=== PATIENT | female | born 1970 | race Caucasian/White ===

== ENCOUNTER 2021-10-02 17:54 | Emergency (ER) | payer OTHER, SELFPAY ==
--- NOTE | 2021-10-02 18:19 | WPDEDEXPGENP ---
HPI - General Ped General Chief complaint: Urogenital-Female Stated complaint: uti complaing History of Present Illness HPI narrative: Within the patient is a 59-year-old female who presents to the express care via POV for evaluation of urinary symptoms that have been present for 2 days. Additionally, she reports dysuria and a strong urine odor. Denies taking meds for symptoms. History of UTIs. Last UTI was 3 weeks ago. Patient states she completed the course of antibiotic treatment although is unable to recall the name and dosing of the antibiotic. Related Data Allergies Allergy/AdvReac Type Severity Reaction Status Date / Time No Known Allergies Allergy Verified 10/02/21 18:32 Pediatric Review of Systems Review of Systems: Denies history of pyelonephritis and renal calculi. Pertinent negatives: fever, chills, sweats, change in appetite, poor p.o. intake, malaise, recent weight loss, myalgias, lymphadenopathy, headache, dizziness, STD exposure, painful intercourse, abdominal pain, constipation, nausea, vomiting, diarrhea, abdominal cramping, hematuria, urinary frequency/urgency, back pain, urinary incontinence, vaginal bleeding/discharge, shortness of breath, chest pain, and heart palpitations/murmurs. Pediatric Exam Narrative: Physical exam: GENERAL: Well-appearing, well-nourished, and in no acute distress. HEAD: Normocephalic, atraumatic. NECK: Supple. No lymphadenopathy or nuchal rigidity. CHEST: Lung sounds are clear to auscultation in bilateral lung mach[place]. No respiratory distress. HEART: Regular rate and rhythm. No murmur, gallop, or rub heard. ABDOMEN: Soft, non-tender, non-distended, normal active bowel sounds in all quadrants. No guarding. No rebound tenderness. No pulsatile or palpable abdominal mass(es). No CVATGU: Bladder non-distended, non-tender EXTREMITIES: Normal range of motion. No edema. SKIN: Warm, dry, no rash. No skin color changes. Excellent turgor. NEURO: No focal deficits. Alert and oriented x3. SPECIAL OBSERVATIONS: Smiling. Laughing. No evidence of discomfort. Course Course Level of Care: Express Care Visit Vital Signs Vital signs: Vital Signs Temperature 99.2 F 10/02/21 18:22 Pulse Rate 90 10/02/21 18:22 Respiratory Rate 18 10/02/21 18:22 Blood Pressure 136/77 10/02/21 18:22 Pulse Oximetry 97 10/02/21 18:22 Oxygen Delivery Room Air 10/02/21 18:22 Temperature 99.2 F 10/02/21 18:22 Pulse Rate 90 10/02/21 18:22 Respiratory Rate 18 10/02/21 18:22 Blood Pressure 136/77 10/02/21 18:22 Pulse Oximetry 97 10/02/21 18:22 Oxygen Delivery Room Air 10/02/21 18:22 Medical Decision Making Differential Diagnosis Differential Diagnosis: Nephrolithiasis, urinary tract infection, pyelonephritis, frequency of micturition, dysuria Vital Signs Vital Signs: Vital Signs Temperature 99.2 F 10/02/21 18:22 Pulse Rate 90 10/02/21 18:22 Respiratory Rate 18 10/02/21 18:22 Blood Pressure 136/77 10/02/21 18:22 Pulse Oximetry 97 10/02/21 18:22 Oxygen Delivery Room Air 10/02/21 18:22 Temperature 99.2 F 10/02/21 18:22 Pulse Rate 90 10/02/21 18:22 Respiratory Rate 18 10/02/21 18:22 Blood Pressure 136/77 10/02/21 18:22 Pulse Oximetry 97 10/02/21 18:22 Oxygen Delivery Room Air 10/02/21 18:22 Reviewed Lab Data Lab results narrative: Urine dipstick: Color: light yellow; Clarity: cloudy; Glucose: negative; Bilirubin: negative; Ketones: negative, Specific [place]: 1.0105; Blood: 1+; pH: 7.0 Protein: negative; URO: 0.2 E.U/dL; Nitrites: negative; Leukocytes: 2+ Labs: Urine Glucose Negative Reference Range: Negative Urine Bilirubin Negative Reference Range: Negative Urine Ketone Negative Reference Range: Ne
[2021-10-02 18:22] VITALS: BP 136/77; PULSE 90; RESP 18; TEMP 37.3; O2SAT 97
== END 2021-10-02 18:43 | disposition home or self-care (01) ==
PROVIDERS: Emergency Provider Nurse Practitioner Family; PCP Family Medicine
DX: N30.90 Cystitis, unspecified without hematuria (principal)
CPT/HCPCS: 81003; 87077; 87086; 87088; 99213; G0463

== ENCOUNTER 2022-07-28 10:11 | Emergency (ER) | payer OTHER, SELFPAY ==
--- NOTE | ~2022-07-28 | XR_ITS ---
EXAMINATION: XR hand LT min 3V DATE: 07/28/2022 10:52 INDICATION: Left hand pain and swelling at the fourth and fifth metacarpals. TECHNIQUE: 3 views of left hand were obtained. COMPARISON: None. FINDINGS: Bone alignment is normal. No fracture. There is mild osteoarthritis of first carpometacarpa l joint and some of the interphalangeal joints. IMPRESSION: 1. Mild polyarticular osteoarthritis. Reviewed, dictated and finalized at location A.
[2022-07-28 10:46] VITALS: BP 138/66; PULSE 87; RESP 18; TEMP 36.7; O2SAT 98
--- NOTE | 2022-07-28 11:27 | ED.UPPEXIN ---
HPI - Extremity Injury (Upper) General Chief Complaint: Extremity Injury, Upper Stated Complaint: lt hand injury Time Seen by Provider: 07/28/22 11:27 Source: patient, RN notes reviewed and old records reviewed Mode of arrival: ambulatory Limitations: no limitations History of Present Illness HPI narrative: 52-year-old female presents to the [facility] with bruising, swelling to her left hand over fingers 4 and 5 as well as the MCPs and metacarpals States that she was working with her cow and injured her hand. No open wounds. MD complaint: injury to: left and hand Related Data Allergies Allergy/AdvReac Type Severity Reaction Status Date / Time No Known Allergies Allergy Verified 10/02/21 18:32 Review of Systems Review of Systems: All systems reviewed & are unremarkable except as noted in HPI and below Constitutional: Constitutional: Reports no additional constitutional complaints Eyes: Eyes: Reports no additional eye complaints ENT: Reports system reviewed and no additional complaints, except as documented Cardiovascular: Cardiovascular: Reports no additional cardiovascular complaints, Denies chest pain and Denies dyspnea Respiratory: Respiratory: Reports no additional respiratory complaints, Denies chest congestion, Denies cough and Denies dyspnea Gastrointestinal: Gastrointestinal: Reports no additional gastrointestinal complaints, Denies abdominal pain, Denies nausea and Denies vomiting Musculoskeletal: Musculoskeletal: Reports as per HPI, Reports arthralgias and Reports joint swelling Integumentary/Breasts: Skin/Breast: Reports system reviewed and no additional complaints, except as docu Neurologic: Reports system reviewed and no additional complaints, except as documented Psychiatric: Psychiatric: Reports no additional psychiatric complaints Allergic/Immunologic: Allergic/Immunologic: Reports no additional allergic/immunologic complaints PMFSH Comments At the time of my signature, I reviewed and agree with the nursing past medical, surgical, social, and family history. There is no relevant family history pertinent to the patient complaint. Exam Const: General: cooperative, healthy appearing, comfortable, no acute distress, well developed, alert and well nourished Nutritional Appearance: well nourished and obese Orientation/consciousness: patient oriented x3 Limitations: no limitations HENMT: Head: normal to inspection Ears: hearing grossly normal bilaterally and external ears normal Face/Nose/Sinus: Normal external nose present, Normal nares present, Normal nasal mucous membranes and turbinates present and normal facial exam Face and sinus: normal facial exam Mouth: Yes lip normal Eyes: General: appearance normal, both eyes and all related structures Alignment and Position: alignment normal Periorbital: periorbital findings normal Pupils: Equal, round and reactive pupils present EOM: EOMs intact bilaterally Neck: Neck: normal visual inspection, full ROM, no lymphadenopathy and no meningeal signs Chest: Chest palpation & inspection: normal inspection of the chest Resp: Effort & Inspection: normal respiratory effort and able to speak in complete sentences Cardio: Rate: regular rate Rhythm: regular rhythm Back/Spine/Pelvis: Cervical Spine: cervical ROM normal Thoracic/Lumbar Spine: No thoracic spinal tenderness Skin: General skin exam: normal color and no rashes or lesions noted Lesions: no lesions Rashes: no rashes Wounds: no wounds Neuro: General: patient oriented x3, gait normal, tone normal, moves all extremities and no meningeal signs Cranial nerves: Yes Equal, round and reactive pupils present Cognition (Neuro): normal cognition Speech: normal speech Gait exam (Neuro): Normal gait present Extrem: General: normal to inspection, full ROM, capillary refill normal and normal gait Left upper extremity: hand normal ROM of fingers, swelling and ecchymosis of the dorsal hand over the 4th metacar
== END 2022-07-28 11:49 | disposition home or self-care (01) ==
PROVIDERS: Emergency Provider Nurse Practitioner; PCP Family Medicine
DX: S60.222A Contusion of left hand, initial encounter (principal); X58.XXXA Exposure to other specified factors, initial encounter
CPT/HCPCS: 73130; 99203; G0463